=== PATIENT | female | born 2000 | race Caucasian/White ===

== ENCOUNTER 2021-12-16 09:52 | Emergency (ER) | payer OTHER ==
[2021-12-16] MEDS ORDERED: Ventolin HFA Inhaler 60 PUFF INHALER ONE (10:21)
== END 2021-12-16 11:22 | disposition home or self-care (01) ==
LOC: CSHERS 09:52
DX: J06.9 Acute upper respiratory infection, unspecified (principal)
CPT/HCPCS: 71045; 93005; 93010

== ENCOUNTER 2022-12-12 15:03 | Emergency (ER) | payer OTHER ==
[2022-12-12] MEDS ORDERED: Ondansetron PF 4 MG/2 ML Vial ONE (16:12)
[2022-12-12] MEDS ORDERED: Ketorolac Tromethamine 30 MG/ML VIAL ONE (16:12)
[2022-12-12] MEDS ORDERED: Metoclopramide HCl 10 MG/2 ML VIAL ONE (16:12)
[2022-12-12] MEDS ORDERED: Lidocaine 1% (PF) 30 ML VIAL ONE (16:54)
== END 2022-12-12 18:11 | disposition home or self-care (01) ==
LOC: CSHERS 15:03
DX: G44.84 Primary exertional headache (principal); R55 Syncope and collapse
CPT/HCPCS: 70450; 96361; 96374; 96375; J1885; J2001; J2405; J2765